=== PATIENT | female | born 1955 | race Caucasian/White ===

== ENCOUNTER 2023-09-30 10:15 | Outpatient (OUT) | payer MEDICARE, OTHER, SELFPAY ==
--- NOTE | 2023-09-30 10:32 | XR_ITS ---
The [address] [address] Patient Name: BRANT ÁLVAREZ MRN: [id number] date: 1955 Sex: F Assigned Patient Location: LAB Current Patient Location: LAB Accession/Order Number: [id number] Exam Date: 09/30/2023 10:37 Report Date: 09/30/2023 11:34 At the request of: ADILSON CARRIZALES Procedure: XR chest 2V EXAM: XR chest 2V HISTORY: Persistant Cough R05.3 COMPARISON: None. TECHNIQUE: PA and lateral views of the chest. FINDINGS: The cardiomediastinal silhouette is normal. No focal consolidation is identified. There is no pneumothorax. No pleural effusion is noted. The osseous structures are intact. XR/XR chest 2V IMPRESSION: No acute cardiopulmonary process. Electronically authenticated by: MARVIN GREWAL Date: 09/30/2023 11:34
[2023-09-30 10:56] LABS: Basophils Absolute Auto 0.1 10^3/uL (0.0-0.1); Basophils Percent Auto 0.7 % (0.2-2.0); Eosinophils Absolute Auto 0.3 10^3/uL (0.0-0.7); Eosinophils Percent Auto 2.9 % (0.9-7.0); Hematocrit 47.8 % (36.0-48.0); Hemoglobin 15.8 g/dL (12.0-16.0); Immature Granulocytes Abs Auto 0.02 10^3/uL (0.00-0.03); Immature Granulocytes Pct Auto 0.2 % (0.0-0.5); Lymphocytes Percent Auto 35.3 % (20.5-60.0); Mean Corpuscular HGB Conc 33.1 g/dL (29.9-35.2); Mean Corpuscular Hemoglobin 31.1 pg (26.7-34.0); Mean Corpuscular Volume 94.1 fL (81.0-99.0); Mean Platelet Volume 9.5 fL (9.5-13.5); Monocytes Absolute Auto 0.4 10^3/uL (0.3-0.8); Monocytes Percent Auto 5.1 % (1.7-12.0); Neutrophils Absolute Auto 4.8 10^3/uL (1.4-6.5); Neutrophils Percent Auto 55.8 % (43.0-75.0); Platelet Count 283 10^3/uL (150-450); Red Blood Count 5.08 10^6/uL (4.20-5.40); Red Cell Distribution Width 12.7 % (11.0-15.0); White Blood Count 8.6 10^3/uL (4.0-11.0)
[2023-09-30 11:04] LABS: Anion Gap 9.2; BUN Creatinine Ratio 11.7; Calcium 9.7 mg/dL (8.5-10.1); Carbon Dioxide 31.2 mmol/L (21.0-32.0); Chloride 102 mmol/L (98-107); Cholesterol 289 mg/dL (<=200); Estimated GFR (African America 59 (>=60); Estimated GFR (Non-African Ame 49 (>=60); Glucose 95 mg/dL (74-106); HDL Cholesterol 58 mg/dL (40-60); Potassium 3.4 mmol/L (3.5-5.1); Sodium 139 mmol/L (136-145); Triglycerides 150 mg/dL (<=150)
== END 2023-09-30 10:16 | disposition home or self-care (01) ==
LOC: LAB 10:20
PROVIDERS: PCP Internal Medicine; Visit Provider Internal Medicine
DX: I10 Essential (primary) hypertension (principal); E78.00 Pure hypercholesterolemia, unspecified; Z79.899 Other long term (current) drug therapy; R05.9 Cough, unspecified
CPT/HCPCS: 36415; 71046; 80048; 80061; 85025

== ENCOUNTER 2024-08-04 12:09 | Emergency (ER) | payer MEDICARE, OTHER, SELFPAY ==
[2024-08-04 12:16] VITALS: BP 169/90; PULSE 72; TEMP 36.7; O2SAT 97; BMI 35.0
--- OUTSIDE RECORDS SUMMARY | 2024-08-04 12:30 | XMS_ITS | CCD ---
Author Organization [facility] Care Team Providers Care Mechanic Insulator Name Role Phone REDDY, DR DE ANDA Attending Unavailable REDDY, DR DE ANDA Consulting Unavailable REDDY, DR DEA NDA Primary Care Unavailable REDDY, DR DE ANDA Admitting Unavailable WEST, DR MICHELLE Corral Consulting Unavailable Reddy, Bobby Unavailable Allergies Allergy Classification Reported Allergen(s) Allergy Type Date of Onset Reaction(s) Facility (6 sources) Simvastatin Drug Allergy 03-10-20 Unknown, Unknown Reaction [facility] (4 sources) Substance with penicillin structure and antibacterial mechanism of action (substance) Drug allergy CDNlion Other (2 sources) Penicillins Allergy to substance 03-10-20 [facility] Medications Current Medications Medication Drug Class(es) Dates Sig (Normalized) Sig (Original) amLODIPine 5 mg oral tablet (8 sources) Dihydropyridine Calcium Channel Raoul Start: 03-10-2024 take 5 mg by mouth once daily Amlodipine Active 5 MG PO Daily 90 90 March 10, 2024 11:46am Start: 03-10-2024 End: 03-10-2024 take 2.5 mg by mouth once daily Amlodipine Discontinue d 2.5 MG PO Daily March 10, 2024 12:00am March 10, 2024 11:48am Start: 09-16-2023 take 1 tablet by tunde th every twenty-four hours amLODIPine Besylate 2.5 MG 1 tablet Orally Once a day for 30 days Aug, Active 24 hr buPROPion hydrochloride 300 mg extended release oral tablet (6 sources) Aminoketone Start: 03-10-2024 take 300 mg by mouth once daily Bupropion Hcl Active 300 MG PO Daily March 10, 2024 12:00am Start: 07-30-2022 take 1 tablet by tunde th every twenty-four hours buPROPion HCl ER (XL) 300 MG 1 tablet in the morning Orally Once a day 12 Sep, 2022 Active ezetimibe 10 mg oral tablet (6 sources) Dietary Cholesterol Absorption Inhibitor Start: 03-10-2024 take 10 mg by mouth once daily Ezetimibe Active 10 MG PO Daily March 10, 2024 12:00am Start: 12-12-2021 take 1 tablet by tunde every twenty-four hours Ezetimibe 10 MG 1 tablet Orally Once a day Nov, Active hydroCHLOROthiazide 25 mg oral tablet (6 sources) Thiazide Diuretic Start: 03-10-2024 take 25 mg by mouth once daily Hydrochlorothiazide Active 25 MG PO Daily March 10, 2024 12:00am take 1 tablet by mouth once armando y hydroCHLOROthiazide 25 mg TAKE 1 TABLET BY MOUTH DAILY Active omeprazole 40 mg delayed release oral capsule (6 sources) Proton Pump Inhibitor Start: 03-10-2024 take 40 mg by mouth once daily Omeprazole Active 40 MG PO Daily March 10, 2024 12:00am Start: 09-16-2023 take 1 capsule by mo [facility] once daily Omeprazole 40 MG 1 capsule 30 minutes before morning meal Orally Once a day for 30 days Aug, Active Completed/Discontinued Medications Medication Drug Class(es) Dates Sig (Normalized) Sig (Original) triamcinolone acetonide 40 mg/ml injectable suspension (4 sources) Corticosteroid Start: 08-22-2023 Kenalog-40 Aug, 60 mg Problems Active Problems Problem Classification Problem Date Documented Da te Episodic/Chronic Anxiety disorders (5 sources) Generalized anxiety disorder; Translations: [Generalized anxiety disorder] Chronic Chronic obstructive pulmonary disease and bronchiectasis (2 sources) Simple chronic bronchitis; Translations: [Simple chronic bronchitis] Chronic Disorders of lipid metabolism (5 sources) Hypercholesterolemi a; Translations: [Pure hypercholesterolemi a, unspecified] Chronic Esophageal disorders (4 sources) Gastro-esophageal reflux disease with esophagitis; Translations: [Gastroesophageal reflux disease with esophagitis without hemorrhage] Chronic Essential hypertension (9 sources) Essential hypertension; Translations: [Essential (primary) hypertension] Chronic Other aftercare (1 source) Other intermediate designer (current) drug therapy Episodic Other nutritional; endocrine; and metabolic disorders (4 sources) Body mass index 30+ - obesity; Translations: [Body mass index (BMI) 34.0-34.9, adult] Chronic Other nutritional; endocrine; and metabolic disorders (4 sources) 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 imbalance; Translations: [Other obesity due to excess calories] Chronic Other nutritional; endocrine; and metabolic disorders (1 source) Other obesity due to excess calories Chronic Other nutritional; endocrine; and metabolic disorders (1 source) Body mass index (BMI) 34.0-34.9, adult Chronic Other screening for suspected conditions (not mental disorders or infectious disease) (2 sources) Encounter for screening mammogram for malignant neoplasm of breast; Translations: [ENC SCR MAMMO MALIG NEOPLASM BREAST] Onset: 10-01-2022 Episodic Other upper respiratory disease (6 sources) Allergic rhinitis due to pollen; Translations: [Allergic rhinitis due to pollen] 05-20-2024 Chronic Other upper respiratory disease (3 sources) Allergic rhinitis due to pollen Chronic Substance-related disorders (2 sources) Tobacco dependence in remission; Translations: [Nicotine dependence, cigarettes, in remission] Chronic Past or Other Problems Problem Classification Problem Date Documented Da te Episodic/Chronic Esophageal disorders (1 source) Esophageal disorders Unclassified (1 source) Persistent cough R05.3 Results Test Name Value Interpretation Reference Range Facil ity CBC AUTO DIFFon 09-26-2022 BASO # 0.1 103/ul Normal 0.0-0.1 [facility] Comment on above: Performed By: #### C BC #### [facility] [address] [place] [address] Dr. Cassie Porter Basophils/100 WBC (Bld) 0.8 % Normal 0.2-2.0 [facility] Comment on above: Performed By: #### C BC #### [facility] [address] [place] [address] Dr. Cassie Porter EO # 0.2 103/ul Normal 0.0-0.7 [facility] Comment on above: Performed By: #### C BC #### [facility] [address] [place] [address] Dr. Cassie Porter Eosinophils/100 WBC (Bld) 1.9 % Normal 0.9-7.0 [facility] Comment on above: Performed By: #### C BC #### [facility] [address] [place] [address] Dr. Cassie Porter Erythrocyte distribution width (RBC) [Ratio] 12.7 % Normal 11.0-15.0 [facility] Comment on above: Performed By: #### C BC #### [facility] [address] [place] [address] Dr. Cassie Porter Hematocrit (Bld) [Volume fraction] 48.4 % Critically high 36.0-48.0 [facility] Comment on above: Performed By: #### C BC #### [facility] [address] [place] [address] Dr. Cassie Porter Hemoglobin (Bld) [Mass/Vol] 16.6 g/dL Critically high 12.0-16.0 [facility] Comment on above: Performed By: #### C BC #### [facility] [address] [place] [address] Dr. Cassie Porter IG # 0.03 10e3/ul Normal 0.00-0.03 [facility] Comment on above: Performed By: #### C BC #### [facility] [address] [place] [address] Dr. Cassie Porter IG % 0.4 % Normal 0.0-0.5 [facility] Comment on above: Performed By: #### C BC #### [facility] [address] [place] [address] Dr. Cassie Porter LYMPH # 2.8 103/ul Normal 1.2-3.8 [facility] Comment on above: Performed By: #### C BC #### [facility] [address] [place] [address] Dr. Cassie Porter Lymphocytes/100 WBC (Bld) 35.8 % Normal 20.5-60.0 [facility] Comment on above: Performed By: #### C BC #### [facility] [address] [place] [address] Dr. Cassie Porter MANUAL DIFF REQ NO Normal [facility] Comment on above: Performed By: #### C BC #### [facility] [address] [place] [address] Dr. Cassie Porter MCH (RBC) [Entitic mass] 31.8 pg Normal 26.7-34.0 [facility] Comment on above: Performed By: #### C BC #### [facility] [address] [address] [address] Cassie Porter MCHC (RBC) [Mass/Vol] 34.3 g/dL Normal 29.9-35.2 [facility] Comment on above: Performed By: #### C BC #### [facility] [address] [place] [address] Dr. Cassie Porter MCV (RBC) [Entitic vol] 92.7 fL Normal 81.0-99.0 [facility] Comment on above: Performed By: #### C BC #### [facility] [address] [place] [address] Dr. Cassie Porter MONO # 0.5 103/ul Normal 0.3-0.8 [facility] Comment on above: Performed By: #### C BC #### [facility] [address] [place] [address] Dr. Cassie Porter Monocytes/100 WBC (Bld) 6.5 % Normal 1.7-12.0 [facility] Comment on above: Performed By: #### C BC #### [facility] [address] [place] [address] Dr. Cassie Porter NEUT # 4.3 103/ul Normal 1.4-6.5 [facility] Comment on above: Performed By: #### C BC #### [facility] [address] [place] [address] Dr. Cassie Porter Neutrophils/100 WBC (Bld) 54.6 % Normal 43.0-75.0 [facility] Comment on above: Performed By: #### C BC #### [facility] [address] [place] [address] Dr. Cassie Porter Platelet mean volume (Bld) [Entitic vol] 9.1 fL Critically low 9.5-13.5 [facility] Comment on above: Performed By: #### C BC #### [facility] [address] [place] [address] Dr. Cassie Porter PLT 257 103/ul Normal 150-450 [facility] Comment on above: Performed By: #### C BC #### [facility] [address] [place], [place] [address] Dr. Cassie Porter RBC 5.22 106/ul Normal 4.20-5.40 [facility] Comment on above: Performed By: #### C BC #### [facility] [address] [place], [place] [address] Dr. Cassie Porter WBC 7.8 103/ul Normal 4.0-11.0 [facility] Comment on above: Performed By: #### C BC #### [facility] [address] [place], [place] [address] Dr. Cassie Porter MG MAMM SCREEN 3D ANSELMO CADon 09-26-2022 MG MAMM SCREEN 3D ANSELMO CAD Patient: KIMBERLI GERMAN Exam Date: 09/26/2022 : 1955 Gender:F Ordering : DR BOBBY CARRIZALES D.O. Admission #: [id number] Family : Order #: [id number] CLICK HERE TO VIEW EXAM RADIOLOGY REPORT PROCEDURE: MAMMOGRAM SCREENING 3D BILATERAL CAD COMPARISON: MG MAMM SCREEN ANSELMO W CAD, 04/09/2019. MG MAMM SCREEN 3D ANSELMO CAD, 09/20/2021. INDICATIONS: Screening mammography Calculator Name NCI Breast Cancer Risk Assessment Tool 5 Year Breast Cancer Risk Not Reported. Lifetime Breast Cancer Risk Not Reported. Personal Breast Cancer No Personal Ovarian Cancer No Treatments None Family Cancers None LOCATION: [facility] BREAST COMPOSITION: Scattered areas fibroglandular density. FINDINGS: DIAGNOSTIC CATEGORY 2--BENIGN FINDING. NO CHANGE FROM COMPARISON. Scattered benign-appearing calcifications are present. Scattered benign-appearing lymph nodes are present. Scattered benign-appearing nodules are present. RIGHT BREAST: No significant suspicious finding. LEFT BREAST: No significant suspicious finding. RECOMMENDATIONS: ROUTINE MAMMOGRAM AND CLINICAL EVALUATION IN 12 MONTHS. PLEASE NOTE: A NORMAL MAMMOGRAM DOES NOT EXCLUDE THE POSSIBILITY OF BREAST CANCER. A CLINICALLY SUSPICIOUS PALPABLE LUMP SHOULD BE BIOPSIED. Dictated by: Michelle Byrd MD on 09/26/2022 at 13:03 Approved by: Michelle Byrd MD on 09/26/2022 at 13:08 Normal [facility] PROF 14(COMP METB)on 022 Albumin [Mass/Vol] 3.8 g/dL Normal 3.4-5.0 [facility] Comment on above: Performed By: #### C MP #### [facility] [address] [place] [address] Dr. Cassie Porter Albumin/Globulin [Mass ratio] 0.9 {ratio} Normal [facility] Comment on above: Performed By: #### C MP #### [facility] [address] [address] [address] Cassie Porter ALP [Catalytic activity/Vol] 66 U/L Normal 46-116 [facility] Comment on above: Performed By: #### C MP #### [facility] [address] [place] [address] Dr. Cassie Porter ALT [Catalytic activity/Vol] 44 U/L Normal 14-59 [facility] Comment on above: Performed By: #### C MP #### [facility] [address] [place] [address] Dr. Cassie Porter Anion gap [Moles/Vol] 7.9 mmol/L Normal [facility] Comment on above: Performed By: #### C MP #### [facility] [address] [place] [address] Dr. Cassie Porter AST [Catalytic activity/Vol] 27 U/L Normal 15-37 [facility] Comment on above: Performed By: #### C MP #### [facility] [address] [place] [address] Dr. Cassie Porter Bilirubin [Mass/Vol] 0.7 mg/dL Normal 0.2-1.0 [facility] Comment on above: Performed By: #### C MP #### [facility] [address] [place] [address] Dr. Cassie Porter Calcium [Mass/Vol] 9.8 mg/dL Normal 8.5-10.1 [facility] Comment on above: Performed By: #### C MP #### [facility] [address] [place] [address] Dr. Cassie Porter Chloride [Moles/Vol] 102 mmol/L Normal 98-107 [facility] Comment on above: Performed By: #### C MP #### [facility] [address] [address] [address] Cassie Porter CO2 [Moles/Vol] 33.6 mmol/L Critically high 21.0-32.0 [facility] Comment on above: Performed By: #### C MP #### [facility] [address] [address] [address] Cassie Porter Creatinine [Mass/Vol] 1.02 mg/dL Normal 0.55-1.02 [facility] Comment on above: Performed By: #### C MP #### [facility] [address] [address] [address] Cassie Porter EGFR-AF LUXEMBOURGER >60 Normal >=60 [facility] Comment on above: Performed By: #### C MP #### [facility] [address] [address] [address] Cassie Porter EGFR-NON AF LUXEMBOURGER 54 mL/min/1.73m2 Critically low >=60 [facility] Comment on above: Performed By: #### C MP #### [facility] [address] [address] [address] Cassie Porter Globulin (S) [Mass/Vol] 4.0 g/dL Normal [facility] Comment on above: Performed By: #### C MP #### [facility] [address] [address] [address] Cassie Porter Glucose [Mass/Vol] 94 mg/dL Normal 74-106 [facility] Comment on above: Performed By: #### C MP #### [facility] [address] [address] [address] Cassie Porter Potassium [Moles/Vol] 3.5 mmol/L Normal 3.5-5.1 [facility] Comment on above: Performed By: #### C MP #### [facility] [address] [address] [address] Cassie Porter Protein [Mass/Vol] 7.8 g/dL Normal 6.4-8.2 [facility] Comment on above: Performed By: #### C MP #### [facility] [address] [address] [address] Cassie Porter Sodium [Moles/Vol] 140 mmol/L Normal 136-145 [facility] Comment on above: Performed By: #### C MP #### [facility] [address] [address] [address] Cassie Porter Urea nitrogen [Mass/Vol] 13.0 mg/dL Normal 7.0-18.0 [facility] Comment on above: Performed By: #### C MP #### [facility] [address] [address] [address] Cassie Porter Urea nitrogen/Creatinine [Mass ratio] 12.7 mg/mg Normal [facility] Comment on above: Performed By: #### C MP #### [facility] [address] [address] [address] Cassie Porter Ambulatory Clinical Summaryo 06-17-2020 Ambulatory Clinical Summary {[id number] Normal [facility] Ambulatory Clinical Summary {[id number]}CD:[id number] Normal [facility] Patient Educationon 06-17-20 Patient Education Family Medicine Flank Pain Flank pain refers to pain that is located on the side of the body between the upper abdomen and the back. The pain may occur over a short period of time (acute ) or may be long-term or reoccurring (chronic ). It may be mild or severe. Flank pain can be caused by many things. CAUSES Some of the more common causes of flank pain include: ? Muscle strains. ? ? Muscle spasms. ? ? A disease of your spine (vertebral disk disease ). ? ? A lung infection (pneumonia ). ? ? Fluid around your lungs (pulmonary edema ). ? ? A kidney infection. ? ? Kidney stones. ? ? A very painful skin rash caused by the chickenpox virus (shingles ). ? ? Gallbladder disease. ? HOME CARE INSTRUCTIONS Home care will depend on the cause of your pain. In general, ? Rest as directed by your caregiver. ? Drink enough fluids to keep your urine clear or pale yellow. ? Only take amqk-ibn-kdvlokx or prescription medicines as directed by your caregiver. Some medicines may help relieve the pain. ? Tell your caregiver about any changes in your pain. ? Follow up with your caregiver as directed. SEEK IMMEDIATE MEDICAL CARE IF: ? Your pain is not controlled with medicine. ? ? You have new or worsening symptoms. ? Your pain increases. ? ? You have abdominal pain. ? ? You have shortness of breath. ? ? You have persistent nausea or vomiting. ? ? You have swelling in your abdomen. ? ? You feel faint or pass out. ? ? You have blood in your urine. ? You have a fever or persistent symptoms for more than 2?3 days. ? You have a fever and your symptoms suddenly get worse. MAKE SURE YOU: ? Understand these instructions. ? Will watch your condition. ? Will get help right away if you are not doing well or get worse. Document Released: 12/26/2006 Document Revised: 07/29/2013 Document Reviewed: 06/18/2013 ExitCare? Patient Information ?2013 [employer]. Normal [facility] 06-17-2020 [facility] [id number]:[id number] Normal [facility] Urology Office/Clinic Noteon 06-17-2020 Urology Office/Clinic Note Chief Complaint f/u with KUB HPI Staff Pt here for f/u with KUB due to microscopic hematuria, Hx of kidney stones, flank pain and urge incontinence. Pt had KUB done 06/16 at [facility] that is neg for obvious stones. Pt was on Tolterodine but stopped this after retiring. Dysuria: No Incomplete bladder emptying: Feels empty Hematuria: Pt denies blood but states that she has noticed her urine is a real dark orange . Denies odor. Frequency: Increased due to lasix Urgency: No, Pt states she can hold her urine. Nocturia: 1x, intermittently Stream: Good stream Leaking: Yes Post void dripping: No Wearing pads/ Depends: No Urge incontinence: No Stress incontinence: Mild dribbling with cough/ sneeze/ jumping. Abdominal pain: no Flank pain: Intermittent pain on the right side, ongoing for years. Tender to pain, last year had two sharp jolts that almost put her on her knees. Sexual complaints: No History of Present Illness Reviewed UA. Reviewed KUB. There have been no associated fever or chills. Pt. denies any pain/burning with urination at this time. Review of Systems PHQ Score Initial Depression Screen Score: 0 ROS - Provider Constitutional: denies weight loss, denies hot flashes. Eyes: denies eye problems. Gastrointestinal: denies nausea, denies vomiting. Cardiovascular: denies chest pain or angina. Integumentary: no dryness Musculoskeletal: denies musculoskeletal symptoms. ENMT: denies otolaryngeal symptoms. Respiratory: no shortness of breath. Heme/Lymph: denies easy bleeding tendency, denies easy bruising tendency. Psychiatric: no confusion, no anxiety. Genitourinary: denies vaginal discharge, denies incontinence, denies dysuria, denies hematuria, denies urinary frequency, denies amenorrhea, denies menorrhagia, denies abnormal bleeding, denies pelvic pain, denies genital sores, and denies decreased libido. Physical Exam Vitals & Measurements HR: 64(Peripheral) BP: 149/91 HT: 154.94 cm WT: 87.6 kg BMI: 36.49 General Appearance: alert , no acute distress, well nourished, well developed female. Genitourinary: bladder nonpalpable, moderate flank pain. Assessment/Plan 1. History of kidney stones (Z87.442: Personal history of urinary calculi) KUB done 06/16/2020 that shows negative for obvious stones. Pt. is doing well and will call the office if she encounter any concerns/issues. 2. Microscopic hematuria (R31.29: Other microscopic hematuria) this is chronic . UA today shows a moderate amount of blood. Pt denies visible blood but states that she has noticed her urine is a real dark orange . Advised pt. to increase water intake even when she's not thirsty. 3. Flank pain (R10.9: Unspecified abdominal pain) Intermittent and ongoing, pain on the right side. seems to be musculoskeletal. I have reviewed the previous health record information and history for this pt. from Dr. Gu. Follow-up With When Contact Information BRITTANIE BOSTON, Satinder Vance Only if needed [address] [place] [address]- [phone] Additional Instructions: Patient Education Flank Pain I, Char Vora , personally scribed for Dr. Gu on 06/17/2020 10:22:05. . Documentation recorded by the scribe, Char Vora, accurately reflects the services(s) I performed and decisions made by me. Authenticated by Dr. Gu on 06/17/2020 10:23:55. 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 Medications aspirin buPROPion, Oral Diclofenac 75mg Tab-DR, Oral, BID hydrochlorothiazide 25 mg Tab, 25 mg= 1 tab(s), Oral, Daily Zetia, Oral, Daily Allergies penicillin (Tongue swelling) solifenacin (Unknown) Social History Tobacco Former smoker, quit more than 30 days ago Tobacco Use:., 06/17/2020 Family History Heart disease: Mother. Primary malignant neoplasm of lung: Father. Lab Results Ambulatory Point of Care Results Bilirubin Urine Dipstick: Negative (06/17/20 09:27:00) Blood Urine Dipstick: 2+ Moderate (06/17/20 09:27:00) Glucose Urine Dipstick: Negative (06/17/20 09:27:00) Ketones Urine Dipstick: Negative (06/17/20 09:27:00) Leukocytes Urine Dipstick: 1+ Small (06/17/20 09:27:00) Nitrite Urine Dipstick: Negative (06/17/20 09:27:00) Protein Urine Dipstick: Negative (06/17/20 09:27:00) Specific [place] Urine Dipstick: 1.025 (06/17/20 09:27:00) Urine Appearance Urine Dipstick: Slightly cloudy (06/17/20 09:27:00) Urine Color Urine Dipstick: Dark yellow (06/17/20 09:27:00) Urobilinogen Urine Dipstick: Normal 0.2-1 EU/dl (06/17/20 09:27:00) pH Urine Dipstick: 5.5 (06/17/20 09:27:00) Normal [facility] Comment on above: Result Comment: Elec tronically Signed By: Satinder GU MD\.br\Date and Time Signed: 06/17/20 10:24 EDT\.br\Electronically Co-Signed By: Char Vora MA\.br\Date and Time Co-Signed: 06/17/20 10:22 EDT Vital Signs Date Time Vital Sign Value Performing Clinician Facility 03-10-2024 11:35-0400 Body height 154.94 cm [facility] 03-10-2024 11:35-0400 Body mass index (BMI) [Ratio] 34.5 kg/m2 [facility] 03-10-2024 11:35-0400 Body weight 83 kg [facility] 03-10-2024 11:35-0400 Diastolic blood pressure 80 mm[Hg] [facility] 03-10-2024 11:35-0400 Heart rate 67 /min [facility] 03-10-2024 11:35-0400 SaO2% (BldA) [Mass fraction] 98 % [facility] 03-10-2024 11:35-0400 Systolic blood pressure 150 mm[Hg] [facility] 11-07-2023 10:30-0500 Body height 154.94 cm [employer] Other [facility] [employer] Other 11-07-2023 10:30-0500 Body mass index (BMI) [Ratio] 34.84 kg/m2 [employer] [place] Other [facility] Other 11-07-2023 10:30-0500 Body weight 83.64 kg Bobby Ball Other [facility] Other 11-07-2023 10:30-0500 Diastolic blood pressure 83 mm[Hg] [employer] Other [facility] Other 11-07-2023 10:30-0500 Respiratory rate 12 /min Bobby Ball Other [facility] Other 11-07-2023 10:30-0500 Systolic blood pressure 133 mm[Hg] Bobby Ball Other [facility] Other 09-16-2023 10:30-0400 Body height 154.94 cm Bobby [employer] Other [facility] Other 09-16-2023 10:30-0400 Body mass index (BMI) [Ratio] 34.84 kg/m2 Bobby [employer] Other [facility] Other 09-16-2023 10:30-0400 Body weight 83.64 kg Bobby [employer] Other [facility] Other 09-16-2023 10:30-0400 Respiratory rate 12 /min Bobby [employer] Other [facility] Other Encounters Encounter Date Encounter Type Care Provider Facility Start: 05-20-2024 End: 05-20-2024 ambulatory [facility] Work Phone: Start: 05-20-2024 End: 05-20-2024 Patient encounter procedure [facility] Work Phone: Start: 03-10-2024 End: 03-10-2024 ambulatory [facility] Work Phone: Start: 03-10-2024 End: 03-10-2024 Patient encounter procedure [facility] Work Phone: Start: 03-10-2024 Non-patient / Non-visit [facility] [employer] Work Phone: Start: 11-07-2023 End: 11-07-2023 ambulatory Bobby Carrizales Other [facility] Other Start: 11-07-2023 Office outpatient vi sit 15 minutes Bobby Carrizales [facility] Start: 10-01-2023 End: 10-01-2023 ambulatory Bobby Carrizales Other [facility] Other Start: 10-01-2023 Telephone encounter Bobby Carrizales [facility] Start: 09-16-2023 End: 09-16-2023 ambulatory Bobby Carrizales Other [facility] Other Start: 09-16-2023 Patient encounter procedure Bobby Carrizales [facility] Start: 08-22-2023 End: 08-22-2023 ambulatory Bobby Carrizales Other [facility] Other Start: 08-22-2023 Nursing evaluation o f patient and report Bobby Carrizales [facility] Start: 10-01-2022 Encounter for genera l adult medical examination without abnormal findings DR BOBBY CARRIZALES [facility] Start: 09-26-2022 End: 09-27-[address] BOBBY CARRIZALES Facility:[facility] Start: 09-26-2022 End: 09-27-2022 Encounter for general adult medical examination without abnormal findings DR BOBBY CARRIZALES Facility:[facility] Immunizations Immunization Date Immunization Notes Care Provider Fa cili 03-09-2021 COVID-19 Vaccine Pfi zer - Documentation Purposes Only Bobby Carrizales Other [facility] 02-16-2021 COVID-19 Vaccine Pfi zer - Documentation Purposes Only Bobby Carrizales Other [facility] Payers Date Payer Category Payer Unknown [id number] 1955 Unknown [id number] Medicare [id number] 2.1 [id number] Private Health Insurance [employer] SSI CLI [id number] Unknown [id number] Unknown [id number] Social History Date Type Detail Facility Unknown if ever smoked [facility] Other Sex Assigned At Sex Assigned At Bir th [facility] Other Start: 03-10-2024 Tobacco smoking status NHIS Never smoked tobacco (finding) [facility] Start: 1955 Sex Assigned At Female F [facility] Evaluation note 11-07-2023 Note Date & Type Note Facility 11-07-2023 Evaluation note Encounter Date Diagnosis Assessment Notes Oct, Simple chronic bronchitis (ICD-10 - J41.0) Mucolyitics as needed. Push fluids Avoid dust, smoke and fumes Oct, Seasonal allergic rhinitis due to pollen (ICD-10 - J30.1) Rotate antihistamines. Flonase and saline NS daily Oct, Cigarette nicotine dependence in remission (ICD-10 - F17.211) Continue abstinence May have underlying obstructive disease but symptoms don't warrant further investigation [facility] [employer] Other Evaluation note 09-16-2023 Note Date & Type Note Facility 09-16-2023 Evaluation note Encounter Date Diagnosis Assessment Notes Aug, Medicare annual wellness visit, subsequent (ICD-10 - Z00.00) Personalized health advice was given to the beneficiary including a written plan for screenings discussed and provided. Advanced care planning reviewed and/or information given as requested. Additional counseling was provided here today in regards to, [ ]. The above visit was performed by [ ], under direct supervision of [ ]. Document reviewed and amended by provider signed below. Aug, Hypercholesteremia (ICD-10 - E78.00) Instructed on diet and exercise with continued statin therapy.Discussed the beneficial effects of lowering cholesterol in reducing the risk for cerebrovascular and cardiovascular disease. Aug, Primary hypertension (ICD-10 - I10) This patient is instructed to consume a healthy, low-fat, low-salt diet. They are also encouraged to continue exercise to achieve/maintain a normal BMI. Aug, SHAW (generalized anxiety disorder) (ICD-10 - F41.1) Healthy diet and exercise Keep active Continue medical treatment Aug, Other obesity due to excess calories (ICD-10 - E66.09) This patient has been instructed on a low-fat, high-fiber diet. They are instructed to reduce calories, portion sizes and snacks. It is recommended that they exercise for 30 minutes, 3-5 times weekly. Aug, Body mass index [BMI] 34.0-34.9, adult (ICD-10 - Z68.34) Aug, Gastroesophageal reflux disease with esophagitis without hemorrhage (ICD-10 - K21.00) Diet instructions: Smaller portions, avoid eating and laying flat, avoid eating or drinking prior to bedtime. Weight loss. Aug, Persistent cough (ICD-10 - R05.3) Discussed different etiology for persistent cough. Allergies w/ PND GERD w/ reflux RAD w/ weather changes, allergies COPD/Asthma Aug, Screening mammogram, encounter for (ICD-10 - Z12.31) Instructed patient on monthly SBE and yearly mammograms. Aug, High risk medication use (ICD-10 - Z79.899) Aug, Non-seasonal allergic rhinitis due to pollen (ICD-10 - J30.1) [facility] Other Evaluation note 08-22-2023 Note Date & Type Note Facility 08-22-2023 Evaluation note Encounter Date Diagnosis Assessment Notes Aug, Non-seasonal allergic rhinitis due to pollen (ICD-10 - J30.1) [facility] Other Evaluation note Note Date & Type Note Facility Evaluation note No Information [employer] Other Evaluation note Note Date & Type Note Facility Evaluation note Diagnosis Onset Date Hypertension [facility] Work Phone: History general Narrative - Reported Note Date & Type Note Facility History general Narrative - Reported Type Medical History menopause Medical History hypertension Surgical History C section Hospitalization History see surgical history [facility] Other Summary Purpose Family History Relationship Condition Age at Onset Recorded Date/T dariel father Unknown Not Specified Unknown Relationship Condition Age at Onset Recorded Date/T dariel father Unknown mother Unknown Advance Directives Advance Directive Response Recorded Date/ Time Advance Directives No March 10 024 11:28am Chief Complaint and Reason for Visit Chief Complaint Amb Documentation BP elevated Reason for Visit Hypertension Chief Complaint Amb Documentation BP elevated allergy shot Reason for Visit Hypertension Additional Source Comments INFORMATION SOURCE (unrecogn ized section and content) DATE CREATED AUTHOR 06/18/2020 Green Karthik [facility] DATE CREATED AUTHOR AUTHOR'S ORGANIZ ATION 10/01/2022 [facility] REASON FOR VISIT (unrecogniz ed section and content) [facility] resu lts2 month Follow up Care Teams (unrecognized sec tion and content) Team Status: Active Member Role Status Dates Bobby Carrizales DO Primary Care Provider Active Team Status: Active Member Role Status Elroy Carrizales DO Primary Care Provider Active Start: March 10, 2024 Melva Humphries LPN Attending Provider Active S tart: March 10, 2024 Team Status: Inactive Member Role Status Elroy Carrizlaes DO Primary Care Provider Active Start: March 10, 2024 End: March 10, 2024 Lima Lopez APRN FAMILY PRACTICE PHYSICIAN-C Attending Provider Act katharine Start: March 10, 2024 End: March 10, 2024 Team Status: Active Member Role Status Elroy Carrizales DO Primary Care Provider Active Start: March 10, 2024 Melva Flores LPN Attending Provider Active St art: March 10, 2024 Team Status: Inactive Member Role Status Elroy Carrizales DO Primary Care Provide r, Attending Provider Active Start: May 20, 2024 End: May 20, 2024 Goals (unrecognized section and content) Goals may be documented in a n alternate section FOR RECORDS PERTAINING TO PATIENTS WHO ARE OR HAVE BEEN ENROLLED IN A CHEMICAL DEPENDENCY/SUBSTANCEABUSE PROGRAM, SOME INFORMATION MAY BE OMITTED. This clinical summary was aggregated from multiple sources. Caution should be exercised in using it in the provision of clinical care. This summary normalizes information from multiple sources, and as a consequence, information in this document may materially change the coding, format and clinical context of patient data. In addition, data may be omitted in some cases. CLINICAL DECISIONS SHOULD BE BASED ON THE PRIMARY CLINICAL RECORDS. [facility] [employer] provides no warranty or guarantee of the accuracy or completeness of information in this document.
--- NOTE | 2024-08-04 12:46 | ED_ITS ---
HPI HPI - General Adult General Chief complaint: Fall Stated complaint: LOWER EXTREMITY INJURY/HEAD INJURY/ FALL Time Seen by Provider: 08/04/24 12:32 Source: patient Mode of arrival: Wheelchair Limitations: physical limitation History of Present Illness HPI narrative: Patient is a 69-year-old female who is presenting to the ER today after she fell off a ladder approximately 6 foot in the air. Patient is on no blood thinners. Patient stated that she was wearing sandals, going up the rungs of the ladder, patient accidentally stepped on one of her flip-flops, patient try to jump or h op to move off the other flip-flop that she could not go up to the next rung of the ladder patient lost balance on the ladder, possibly falling onto the right side hitting the cabinets, counter, and then ended up landing on the ground, on her left side. This happened in the kitchen. Patient was trying to dust legs in the ceiling. Patient has no headache. She does have a small hematoma to the right parietal area, no bleeding or abrasion noted. No neck pain. No blood thinners. No chest pain or shortness of breath. Patient has no other acute complaints except to her left heel, left midfoot. Patient is not able to walk on the foot secondary to pain. Patient has no other acute complaints. All systems are negative except as noted/marked. All systems reviewed and otherwise negative. Nurses note and vital signs reviewed and patient is not hypoxic. General: The patient appears well and in no apparent distress. Patient is resting comfortably on cart. Patient is not toxic, lethargic, or listless Skin: Warm, dry, no pallor noted. There is no rash noted. No petechiae, purpura. Head: Normocephalic, atraumatic Eye: Normal conjunctiva, no drainage, EOMI. PERRL Ears, Nose, Mouth, and Throat: oral mucosa is moist. Nares patent. Mouth without vesicles. Cardiovascular: Regular Rate and Rhythm, no murmur, gallop, rub Respiratory: Patient is in no distress, no accessory muscle use, lungs are clear to auscultation, no wheezing, rales or rhonchi Back: non-tender, no CVA tenderness bilaterally to percussion. No CT LS midline pain. Patient has no midline or paralumbar sacral tenderness to palpation. No rash, abrasion, hematoma, no signs of trauma to her back or flanks. GI: no tenderness to palpation, no masses appreciated. No rebound, guarding, or rigidity noted. No distention Musculoskeletal: Patient has full range of motion of all of the extremities except the left foot. No no crepitus, no ecchymosis, patient does have moderate tenderness to palpation to the left calcaneus. Patient has mild tenderness palpation to the midfoot, dorsal aspect of the left foot. Patient has no swelling or ecchymosis. No motor, sensory, or focal neurological deficits Neurological: A&O x4, normal speech Psychiatric: Cooperative Related Data Home Medications ?Medication ?Instructions ?Recorded ?Confirmed amlodipine 5 mg tablet 5 mg PO .once daily 08/04/24 08/04/24 aspirin 81 mg tablet,delayed 81 mg PO DAILY 08/04/24 08/04/24 release (Adult Aspirin Regimen) bupropion HCl 300 mg 24 hr tablet, 300 mg PO .once daily 08/04/24 08/04/24 extended release hydrochlorothiazide 25 mg tablet 25 mg PO .once daily 08/04/24 08/04/24 loratadine 10 mg tablet (Allergy 10 mg PO DAILY 08/04/24 08/04/24 Relief (loratadine)) tolterodine 2 mg tablet (Detrol) 2 mg PO DAILY 08/04/24 08/04/24 Previous Rx's ?Medication ?Instructions ?Recorded hydrocodone 7.5 mg-acetaminophen 0.5 tab PO Q4H PRN pain #10 tabs 08/04/24 325 mg tablet Allergies Allergy/AdvReac Type Severity Reaction Status Date / Time Penicillins Allergy Severe Anaphylaxis Verified 08/04/24 12:27 Opioid HPI Opioid Management Most Recent Opioid Data: No Data to Display [facility] Social History Little interest or pleasure in doing things: not at all Feeling down, depressed, or hopeless: not at all Exam Constitutional Vital Signs, click to edit/add: Last Vital Signs Temp 98.1 F 08/04/24 12:16 Pulse 72 08/04/24 12:16 Resp 18 08/04/24 12:16 BP 169/90 H 08/04/24 12:16 Pulse Ox 97 08/04/24 12:16 O2 Del Method Room Air 08/04/24 12:16 Course Vital Signs Vital signs: Vital Signs Temperature 98.1 F 08/04/24 12:16 Pulse Rate 72 08/04/24 12:16 Respiratory Rate 18 08/04/24 12:16 Blood Pressure 169/90 H 08/04/24 12:16 Pulse Oximetry 97 08/04/24 12:16 Oxygen Delivery Method Room Air 08/04/24 12:16 Temperature 98.1 F 08/04/24 12:16 Pulse Rate 72 08/04/24 12:16 Respiratory Rate 18 08/04/24 12:16 Blood Pressure 169/90 H 08/04/24 12:16 Pulse Oximetry 97 08/04/24 12:16 Oxygen Delivery Method Room Air 08/04/24 12:16 Medical Decision Making MDM Narrative Medical decision making narrative: CT of the head, x-ray of the left foot, calcaneus shows no acute fracture dislo cation or acute abnormality.. Patient did have ice applied. Patient does have access to a walker. CT of the brain shows no acute findings. Patient x-ray of left foot and left calcaneus show no acute fracture. Patient does have a walker that she can use. Patient was placed in Arnulfo wrap to the left calcaneus Splint was assisted with . the patient was neurovascularly intact before and after the splint was placed. the affected bones/injured area had proper alignment in a splint. Education on splint care at home was given at bedside. Patient and family have no questions at discharge. Patient will alternate Tylenol and Motrin every 4 hours, patient use [place] as needed as well. Patient will use ice. Patient has availability for walker. Patient will follow-up with PCP. Education on RICE therapy was discussed. Education close head injury was discussed as well, no questions at discharge Discharge Plan Discharge Chief Complaint: Fall Clinical Impression: Contusion of left heel, Closed head injury, Fall, Scalp hematoma Patient Disposition: Home, Self-Care Time of Disposition Decision: 14:58 Condition: Fair Prescriptions / Home Meds: New hydrocodone-acetaminophen 7.5-325 mg tablet 0.5 tab PO Q4H PRN (Reason: pain) Qty: 10 0RF No Action bupropion HCl 300 mg tablet extended release 24 hr 300 mg PO .once daily amlodipine 5 mg tablet 5 mg PO .once daily hydrochlorothiazide 25 mg tablet 25 mg PO .once daily aspirin [Adult Aspirin Regimen] 81 mg tablet,delayed release (/EC) 81 mg PO DAILY tolterodine [Detrol] 2 mg tablet 2 mg PO DAILY loratadine [Allergy Relief (loratadine)] 10 mg tablet 10 mg PO DAILY Print Language: Arabic Instructions: Head Injury (ED), Contusion in Adults (ED), Foot Contusion (ED), Fall Prevention (ED) Additional Instructions: Use ice 20 minutes on, 20 minutes off. Close head injury instructions were discussed at bedside and on discharge paperwork. Use Arnulfo wrap at all times besides ice and shower for the next 5 to 7 days. Use walker as well, weightbearing as tolerated on left foot. Alternate Tylenol and either Motrin, Advil, or ibuprofen every 4 hours to help with pain. If you are having severe pain, substitute a [place] tablet instead of Tylenol. Do not take Tylenol and [place] at the same time, you may actually take too much Tylenol at 1 setting or in 1 day. Maximum Tylenol dose of Tylenol is 3000 mg a day. Maximum dose of either Motrin, Advil, or ibuprofen is 2400 mg a day. Referrals: Bobby Blakely DO [Primary Care Provider] - 1 week
--- NOTE | 2024-08-04 13:02 | CT_ITS ---
The [address] [address] Patient Name: BRANT ÁLVAREZ MRN: [id number] date: 1955 Sex: F Assigned Patient Location: ER Current Patient Location: ER Accession/Order Number: [id number] Exam Date: 08/04/2024 12:58 Report Date: 08/04/2024 13:35 At the request of: PETROS PARKER Procedure: CT head/brain wo con EXAM: CT head/brain wo con HISTORY: fall COMPARISON: None. TECHNIQUE: Multiple thin computed tomograms of the head were obtained, with sagittal and coronal reconstructions. Radiation reduction technique and algorithms were utilized during the study. FINDINGS: The ventricles are not enlarged, the lateral ventricles are symmetric and the third ventricles in the midline. The sylvian fissures and cortical sulci are unremarkable. There is no evidence of an intracranial hemorrhage, mass lesion or apparent acute infarct. The cerebellum and visualized brainstem are intact. The visualized paranasal sinuses are clear. The middle ears are aerated. The mastoid sinuses are clear. There is no apparent acute skull fracture. CT/CT head/brain wo con IMPRESSION: There is no evidence of an intracranial hemorrhage, mass lesion or apparent acute infarct. The visualized sinuses are clear. There is no evidence of a skull fracture. Electronically authenticated by: FADY BURROWS Date: 08/04/2024 13:35
--- NOTE | 2024-08-04 13:10 | XR_ITS ---
The [address] [address] Patient Name: BRANT ÁLVAREZ MRN: [id number] date: 1955 Sex: F Assigned Patient Location: ER Current Patient Location: ER Accession/Order Number: [id number] Exam Date: 08/04/2024 13:00 Report Date: 08/04/2024 13:17 At the request of: PETROS PARKER Procedure: XR foot LT min 3V PROCEDURE: XR foot LT min 3V, XR calcaneus LT min 2V COMPARISON: None. HISTORY: fall FINDINGS: BONES:No acute fracture or dislocation. Mild to moderate enthesopathic spurring of the calcaneus at the Achilles and plantar insertions. Mild degenerative changes of the midfoot with marginal osteophyte formation SOFT TISSUES:Negative. No visible soft tissue swelling. EFFUSION:None visible. OTHER: Negative. XR/XR foot LT min 3V IMPRESSION: No acute fracture Electronically authenticated by: MICHELLE MERCADO Date: 08/04/2024 13:17
--- NOTE | 2024-08-04 13:10 | XR_ITS ---
The [address] [address] Patient Name: BRANT ÁLVAREZ MRN: [id number] date: 1955 Sex: F Assigned Patient Location: ER Current Patient Location: ER Accession/Order Number: [id number] Exam Date: 08/04/2024 13:00 Report Date: 08/04/2024 13:17 At the request of: PETROS PARKER Procedure: XR calcaneus LT min 2V PROCEDURE: XR foot LT min 3V, XR calcaneus LT min 2V COMPARISON: None. HISTORY: fall FINDINGS: BONES:No acute fracture or dislocation. Mild to moderate enthesopathic spurring of the calcaneus at the Achilles and plantar insertions. Mild degenerative changes of the midfoot with marginal osteophyte formation SOFT TISSUES:Negative. No visible soft tissue swelling. EFFUSION:None visible. OTHER: Negative. XR/XR calcaneus LT min 2V IMPRESSION: No acute fracture Electronically authenticated by: MICHELLE MERCADO Date: 08/04/2024 13:17
[2024-08-04] MEDS: HYDROCODONE/ACET 5-325 MG TABLET 1 TAB PO (15:05)
== END 2024-08-04 15:14 | disposition home or self-care (01) ==
PROVIDERS: Emergency Provider Emergency Medicine; PCP Internal Medicine
DX: S90.32XA Contusion of left foot, initial encounter (principal); S09.8XXA Other specified injuries of head, initial encounter; S00.03XA Contusion of scalp, initial encounter; W11.XXXA Fall on and from ladder, initial encounter
CPT/HCPCS: 70450; 73630; 73650; 99284

== ENCOUNTER 2024-10-19 09:48 | Outpatient (OUT) | payer MEDICARE, SELFPAY ==
--- NOTE | 2024-10-19 | MM_ITS ---
Patient Name: BRANT ÁLVAREZ MR#: [id number] : 1955 Exam Date: 10/19/2024 Ordering Doctor: DR Bobby Blakely D.O. RADIOLOGY REPORT PROCEDURE: MM TOMOSYNTHESIS SCREENING BI COMPARISON: MG MAMM SCREEN 3D ANSELMO CAD, 09/26/2022. MG MAMM SCREEN 3D ANSELMO CAD, 09/20/2021. MG MAMM SCREEN ANSELMO W CAD, 04/09/2019. INDICATIONS: SCREENING Calculator Name NCI Breast Cancer Risk Assessment Tool 5 Year Breast Cancer Risk Not Reported. Lifetime Breast Cancer Risk Not Reported. Personal Breast Cancer No Personal Ovarian Cancer No Treatments None Family Cancers None LOCATION: [facility] BREAST COMPOSITION: There are scattered areas of fibroglandular density. FINDINGS: DIAGNOSTIC CATEGORY 2--BENIGN FINDING: RIGHT BREAST: No significant suspicious finding. Scattered benign-appearing calcifications are present. No significant change has occurred. LEFT BREAST: No significant suspicious finding. Scattered benign-appearing calcifications are present. No significant change has occurred. RECOMMENDATIONS: ROUTINE MAMMOGRAM AND CLINICAL EVALUATION IN 12 MONTHS. PLEASE NOTE: A NORMAL MAMMOGRAM DOES NOT EXCLUDE THE POSSIBILITY OF BREAST CANCER. A CLINICALLY SUSPICIOUS PALPABLE LUMP SHOULD BE BIOPSIED. Dictated by: Raul Steel M.D. on 10/19/2024 at 16:17 Approved by: Raul Steel M.D. on 10/19/2024 at 16:20
--- OUTSIDE RECORDS SUMMARY | 2024-10-19 10:14 | XMS_ITS | CCD ---
Author Organization [facility] Care Team Providers Care State Wildlife Officer Name Role Phone REDDY, DR DE ANDA Attending Unavailable REDDY, DR DE ANDA Consulting Unavailable REDDY, DR DE ANDA Primary Care Unavailable REDDY, DR DE ANDA Admitting Unavailable WEST, DR MICHELLE Corral Consulting Unavailable Reddy, Bobby Unavailable Allergies Allergy Classification Reported Allergen(s) Allergy Type Date of Onset Reaction(s) Facility (7 sources) Simvastatin Drug Allergy 03-10-20 Unknown, Unknown Reaction [facility] (4 sources) Substance with penicillin structure and antibacterial mechanism of action (substance) Drug allergy Coubic Other (3 sources) Penicillins Allergy to substance 03-10-20 [facility] Medications Current Medications Medication Drug Class(es) Dates Sig (Normalized) Sig (Original) amLODIPine 5 mg oral tablet (11 sources) Dihydropyridine Calcium Channel Raoul Start: 03-10-2024 End: 06-18-2024 take 5 mg by mouth once daily Amlodipine Active 5 MG PO Daily 90 90 June 18, 2024 3:56pm Start: 03-10-2024 End: 03-10-2024 take 2.5 mg by mouth once daily Amlodipine Discontinue d 2.5 MG PO Daily March 10, 2024 12:00am March 10, 2024 11:48am Start: 09-16-2023 take 1 tablet by tunde th every twenty-four hours amLODIPine Besylate 2.5 MG 1 tablet Orally Once a day for 30 days Aug, Active 24 hr buPROPion hydrochloride 300 mg extended release oral tablet (7 sources) Aminoketone Start: 03-10-2024 take 300 mg by mouth once daily Bupropion Hcl Active 300 MG PO Daily March 10, 2024 12:00am Start: 07-30-2022 take 1 tablet by tunde th every twenty-four hours buPROPion HCl ER (XL) 300 MG 1 tablet in the morning Orally Once a day Jul, Active ezetimibe 10 mg oral tablet (8 sources) Dietary Cholesterol Absorption Inhibitor Start: 06-18-2024 take 1 tablet by mouth once daily Ezetimibe Active 0 .ROUTE .COMPLEX 90 June 18, 2024 8:53am TAKE 1 TABLET BY MOUTH DAILY Start: 03-10-2024 End: 06-18-2024 take 10 mg by mouth once daily Ezetimibe Discontinued 10 MG PO Daily March 10, 2024 12:00am June 18, 2024 8:54am Start: 12-12-2021 take 1 tablet by tunde th every twenty-four hours Ezetimibe 10 MG 1 tablet Orally Once a day Nov, Active hydroCHLOROthiazide 25 mg oral tablet (7 sources) Thiazide Diuretic Start: 03-10-2024 take 25 mg by mouth once daily Hydrochlorothiazide Active 25 MG PO Daily March 10, 2024 12:00am take 1 tablet by mouth once armando y hydroCHLOROthiazide 25 mg TAKE 1 TABLET BY MOUTH DAILY Active omeprazole 40 mg delayed release oral capsule (7 sources) Proton Pump Inhibitor Start: 03-10-2024 take 40 mg by mouth once daily Omeprazole Active 40 MG PO Daily March 10, 2024 12:00am Start: 09-16-2023 take 1 capsule by mo [facility] once daily Omeprazole 40 MG 1 capsule 30 minutes before morning meal Orally Once a day for 30 days Aug, Active Completed/Discontinued Medications Medication Drug Class(es) Dates Sig (Normalized) Sig (Original) triamcinolone acetonide 40 mg/ml injectable suspension (4 sources) Corticosteroid Start: 08-22-2023 Kenalog-40 Aug, 60 mg Problems Active Problems Problem Classification Problem Date Documented Da te Episodic/Chronic Anxiety disorders (7 sources) Generalized anxiety disorder; Translations: [Generalized anxiety disorder] Chronic Chronic obstructive pulmonary disease and bronchiectasis (4 sources) Simple chronic bronchitis; Translations: [Simple chronic bronchitis] Chronic Disorders of lipid metabolism (7 sources) Hypercholesterolemi a; Translations: [Pure hypercholesterolemi a, unspecified] Chronic Esophageal disorders (6 sources) Gastro-esophageal reflux disease with esophagitis; Translations: [Gastroesophageal reflux disease with esophagitis without hemorrhage] 09-15-2024 Chronic Essential hypertension (11 sources) Essential hypertension; Translations: [Essential (primary) hypertension] Chronic Other aftercare (1 source) Other longterm (current) drug therapy Episodic Other nutritional; endocrine; [...] conditions (not mental disorders or infectious disease) (4 sources) Encounter for screening mammogram for malignant neoplasm of breast; Translations: [Patient encounter status] Onset: 10-01-2022 Episodic Other upper respiratory disease (7 sources) Allergic rhinitis due to pollen; Translations: [Allergic rhinitis due to pollen] 05-20-2024 Chronic Other upper respiratory disease (4 sources) Allergic rhinitis due to pollen; Translations: [Allergic rhinitis due to pollen] Chronic Substance-related disorders (4 sources) Tobacco dependence in remission; Translations: [Nicotine dependence, cigarettes, in remission] Chronic Superficial injury; contusion (2 sources) Contusion of left foot; Translations: [Contusion of left foot, initial encounter] 09-17-2024 Episodic Past or Other Problems Problem Classification Problem Date Documented Da te Episodic/Chronic Esophageal disorders (1 source) Esophageal disorders Unclassified (1 source) Persistent cough R05.3 Results Test Name Value Interpretation Reference Range Facil ity CBC AUTO DIFFon 09-26-2022 BASO # 0.1 103/ul Normal 0.0-0.1 [facility] Comment on above: Performed By: #### C BC #### [facility] [address] [place], [place] [address] Dr. Cassie Porter Basophils/100 WBC (Bld) 0.8 % Normal 0.2-2.0 [facility] Comment on above: Performed By: #### C BC #### [facility] [address] [place], [place] [address] Dr. Cassie Porter EO # 0.2 103/ul Normal 0.0-0.7 [facility] Comment on above: Performed By: #### C BC #### [facility] [address] [place] [address] Dr. Cassie Porter Eosinophils/100 WBC (Bld) 1.9 % Normal 0.9-7.0 [facility] Comment on above: Performed By: #### C BC #### [facility] [address] [place] [address] Dr. Cassie Porter Erythrocyte distribution width (RBC) [Ratio] 12.7 % Normal 11.0-15.0 [facility] Comment on above: Performed By: #### C BC #### [facility] [address] [place] [address] Dr. Cassie Porter Hematocrit (Bld) [Volume fraction] 48.4 % Critically high 36.0-48.0 [facility] Comment on above: Performed By: #### C BC #### [facility] [address] [place] [address] Dr. Cassie Porter Hemoglobin (Bld) [Mass/Vol] 16.6 g/dL Critically high 12.0-16.0 [facility] Comment on above: Performed By: #### C BC #### [facility] [address] [place] [address] Dr. Cassie Porter IG # 0.03 10e3/ul Normal 0.00-0.03 [facility] Comment on above: Performed By: #### C BC #### [facility] [address] [place] [address] Dr. Cassie Porter IG % 0.4 % Normal 0.0-0.5 [facility] Comment on above: Performed By: #### C BC #### [facility] [address] [place] [address] Dr. Cassie Porter LYMPH # 2.8 103/ul Normal 1.2-3.8 [facility] Comment on above: Performed By: #### C BC #### [facility] [address] [place] [address] Dr. Cassie Porter Lymphocytes/100 WBC (Bld) 35.8 % Normal 20.5-60.0 [facility] Comment on above: Performed By: #### C BC #### [facility] [address] [place] [address] Dr. Cassie Porter MANUAL DIFF REQ NO Normal [facility] Comment on above: Performed By: #### C BC #### [facility] [address] [place] [address] Dr. Cassie Porter MCH (RBC) [Entitic mass] 31.8 pg Normal 26.7-34.0 [facility] Comment on above: Performed By: #### C BC #### [facility] [address] [place] [address] Dr. Cassie Porter MCHC (RBC) [Mass/Vol] 34.3 g/dL Normal 29.9-35.2 [facility] Comment on above: Performed By: #### C BC #### [facility] [address] [place] [address] Dr. Cassie Porter MCV (RBC) [Entitic vol] 92.7 fL Normal 81.0-99.0 [facility] Comment on above: Performed By: #### C BC #### [facility] [address] [place] [address] Dr. Cassie Porter MONO # 0.5 103/ul Normal 0.3-0.8 [facility] Comment on above: Performed By: #### C BC #### [facility] [address] [place] [address] Dr. Cassie Porter Monocytes/100 WBC (Bld) 6.5 % Normal 1.7-12.0 [facility] Comment on above: Performed By: #### C BC #### [facility] [address] [place] [address] Dr. Cassie Porter NEUT # 4.3 103/ul Normal 1.4-6.5 [facility] Comment on above: Performed By: #### C BC #### [facility] [address] [place] [address] Dr. Cassie Porter Neutrophils/100 WBC (Bld) 54.6 % Normal 43.0-75.0 [facility] Comment on above: Performed By: #### C BC #### [facility] [address] [place], [place] [address] Dr. Cassie Porter Platelet mean volume (Bld) [Entitic vol] 9.1 fL Critically low 9.5-13.5 [facility] Comment on above: Performed By: #### C BC #### [facility] [address] [place], [place] [address] Dr. Cassie Porter PLT 257 103/ul Normal 150-450 [facility] Comment on above: Performed By: #### C BC #### [facility] [address] [place], [place] [address] Dr. Cassie Porter RBC 5.22 106/ul Normal 4.20-5.40 [facility] Comment on above: Performed By: #### C BC #### [facility] [address] [place] [address] [address] Cassie Porter WBC 7.8 103/ul Normal 4.0-11.0 [facility] Comment on above: Performed By: #### C BC #### [facility] [address] [place] [address] [address] Cassie Porter MG MAMM SCREEN 3D ANSELMO CADon 09-26-2022 MG MAMM SCREEN 3D ANSELMO CAD Patient: KIMBERLI GERMAN Exam Date: 09/26/2022 : 1955 Gender:F Ordering : DR BOBBY CARRIZALES D.O. Admission #: [id number] Family : Order #: [id number] CLICK HERE TO VIEW EXAM RADIOLOGY REPORT [...] Treatments None Family Cancers None LOCATION: [facility] BREAST COMPOSITION: Scattered areas fibroglandular density. [...] Byrd MD on 09/26/2022 at 13:08 Normal [facility] PROF 14(COMP METB)on 022 Albumin [Mass/Vol] 3.8 g/dL Normal 3.4-5.0 [facility] Comment on above: Performed By: #### C MP #### [facility] [address] [place] [address] Dr. Cassie Porter Albumin/Globulin [Mass ratio] 0.9 {ratio} Normal [facility] Comment on above: Performed By: #### C MP #### [facility] [address] [place] [address] Dr. Cassie Porter ALP [Catalytic activity/Vol] 66 U/L Normal 46-116 [facility] Comment on above: Performed By: #### C MP #### [facility] [address] [place] [address] Dr. Cassie Porter ALT [Catalytic activity/Vol] 44 U/L Normal 14-59 [facility] Comment on above: Performed By: #### C MP #### [facility] [address] [place] [address] Dr. Cassie Porter Anion gap [Moles/Vol] 7.9 mmol/L Normal [facility] Comment on above: Performed By: #### C MP #### [facility] [address] [place] [address] Dr. Cassie Porter AST [Catalytic activity/Vol] 27 U/L Normal 15-37 [facility] Comment on above: Performed By: #### C MP #### [facility] [address] [place] [address] Dr. Cassie Porter Bilirubin [Mass/Vol] 0.7 mg/dL Normal 0.2-1.0 [facility] Comment on above: Performed By: #### C MP #### [facility] [address] [place] [address] [address] Cassie Porter Calcium [Mass/Vol] 9.8 mg/dL Normal 8.5-10.1 [facility] Comment on above: Performed By: #### C MP #### [facility] [address] [place] [address] [address] Cassie Porter Chloride [Moles/Vol] 102 mmol/L Normal 98-107 [facility] Comment on above: Performed By: #### C MP #### [facility] [address] [place] [address] [address] Cassie Porter CO2 [Moles/Vol] 33.6 mmol/L Critically high 21.0-32.0 [facility] Comment on above: Performed By: #### C MP #### [facility] [address] [place] [address] Dr. Cassie Porter Creatinine [Mass/Vol] 1.02 mg/dL Normal 0.55-1.02 [facility] Comment on above: Performed By: #### C MP #### [facility] [address] [place] [address] [address] Cassie Porter EGFR-AF SLOVAK >60 Normal >=60 [facility] Comment on above: Performed By: #### C MP #### [facility] [address] [place] [address] Dr. Cassie Porter EGFR-NON AF SLOVAK 54 mL/min/1.73m2 Critically low >=60 [facility] Comment on above: Performed By: #### C MP #### [facility] [address] [place] [address] [address] Cassie Porter Globulin (S) [Mass/Vol] 4.0 g/dL Normal [facility] Comment on above: Performed By: #### C MP #### [facility] [address] [place] [address] [address] Cassie Porter Glucose [Mass/Vol] 94 mg/dL Normal 74-106 [facility] Comment on above: Performed By: #### C MP #### [facility] [address] [place] [address] Dr. Cassie Porter Potassium [Moles/Vol] 3.5 mmol/L Normal 3.5-5.1 [facility] Comment on above: Performed By: #### C MP #### [facility] [address] [place] [address] [address] Cassie Porter Protein [Mass/Vol] 7.8 g/dL Normal 6.4-8.2 [facility] Comment on above: Performed By: #### C MP #### [facility] [address] [place] [address] [address] Cassie Porter Sodium [Moles/Vol] 140 mmol/L Normal 136-145 [facility] Comment on above: Performed By: #### C MP #### [facility] [address] [place] [address] [address] Cassie Porter Urea nitrogen [Mass/Vol] 13.0 mg/dL Normal 7.0-18.0 [facility] Comment on above: Performed By: #### C MP #### [facility] [address] [place] [address] [address] Cassie Porter Urea nitrogen/Creatinine [Mass ratio] 12.7 mg/mg Normal [facility] Comment on above: Performed By: #### C MP #### [facility] [address] [place] [address] [address] Cassie Porter Ambulatory Clinical Summaryo 06-17-2020 Ambulatory Clinical Summary {[id number]}CD:[id number] Normal [facility] Ambulatory Clinical Summary {[id number] Normal [facility] Patient Educationon 06-17-20 Patient Education Family [...] clear or pale yellow. ? Only take tvcg-dnj-nsyrgou or prescription medicines as directed by your [...] Document Reviewed: 06/18/2013 ExitCare? Patient Information ?2013 MiNOWireless. Normal [facility] RAD - MISCon 06-17-2020 [facility] [id number]:[id number] Normal [facility] Urology Office/Clinic Noteon 06-17-2020 Urology Office/Clinic Note Chief Complaint f/u with [facility]UB HPI Staff Pt here for f/u with KUB due to microscopic hematuria, Hx of kidney stones, flank pain and urge incontinence. Pt had [facility] done [facility]16 [facility] that is neg for obvious stones. Pt [...] and history for this pt. from Dr. Hazel. Follow-up With When Contact Information BRITTANIE BOSTON, Satinder Vance Only if needed [address] [place] [address]- [phone] Additional Instructions: Patient Education Flank Pain I, Char Vora , personally scribed for Dr. Hazel on 06/17/2020 10:22:05. . Documentation recorded by the scribe, Char Vora, accurately reflects the services(s) I performed and decisions made by me. Authenticated by Dr. Hazel on 06/17/2020 10:23:55. Problem List/Past Medical History [...] Protein Urine Dipstick: Negative (06/17/20 09:27:00) Specific [place] Urine Dipstick: 1.025 (06/17/20 09:27:00) Urine Appearance Urine Dipstick: Slightly cloudy (06/17/20 09:27:00) Urine Color Urine Dipstick: Dark yellow (06/17/20 09:27:00) Urobilinogen Urine Dipstick: Normal 0.2-1 EU/dl (06/17/20 09:27:00) pH Urine Dipstick: 5.5 (06/17/20 09:27:00) Normal [facility] Comment on above: Result Comment: Elec tronically Signed By: BRITTANIE BOSTON, Satinder Vance\.br\Date and Time Signed: 06/17/20 10:24 EDT\.br\Electronically Co-Signed By: Char Vora MA\.br\Date and Time Co-Signed: 06/17/20 10:22 EDT Vital Signs Date Time Vital Sign Value Performing Clinician Facility 09-17-2024 10:54-0400 Body height 154.94 cm [facility] 09-17-2024 10:54-0400 Body mass index (BMI) [Ratio] 34.5 kg/m2 [facility] 09-17-2024 10:54-0400 Body weight 83 kg [facility] 09-17-2024 10:54-0400 Diastolic blood pressure 90 mm[Hg] [facility] 09-17-2024 10:54-0400 Heart rate 67 /min [facility] 09-17-2024 10:54-0400 Respiratory rate 12 /min [facility] 09-17-2024 10:54-0400 Systolic blood pressure 169 mm[Hg] [facility] 03-10-2024 11:35-0400 Body height 154.94 cm [facility] 03-10-2024 11:35-0400 Body mass index (BMI) [Ratio] 34.5 kg/m2 [facility] 03-10-2024 11:35-0400 Body weight 83 kg [facility] 03-10-2024 11:35-0400 Diastolic blood pressure 80 mm[Hg] [facility] 03-10-2024 11:35-0400 Heart rate 67 /min [facility] 03-10-2024 11:35-0400 SaO2% (BldA) [Mass fraction] 98 % [facility] 03-10-2024 11:35-0400 Systolic blood pressure 150 mm[Hg] [facility] 11-07-2023 10:30-0500 Body height 154.94 cm Bobby Ball Other [facility] Other 11-07-2023 10:30-0500 Body mass index (BMI) [Ratio] 34.84 kg/m2 Bobby Ball Other [facility] Other 11-07-2023 10:30-0500 Body weight 83.64 kg Bobby Ball Other [facility] Other 11-07-2023 10:30-0500 Diastolic blood pressure 83 mm[Hg] Bobby Ball Other [facility] Other 11-07-2023 10:30-0500 Respiratory rate 12 /min Bobby Ball Other [facility] Other 11-07-2023 10:30-0500 Systolic blood pressure 133 mm[Hg] Bobby Ball Other [facility] Other 09-16-2023 10:30-0400 Body height 154.94 cm Bobby Ball Other [facility] Other 09-16-2023 10:30-0400 Body mass index (BMI) [Ratio] 34.84 kg/m2 Bobby Ball Other [facility] Other 09-16-2023 10:30-0400 Body weight 83.64 kg Bobby Carrizales Other [facility] Other 09-16-2023 10:30-0400 Respiratory rate 12 /min Bobby Carrizales Other [facility] Other Encounters Encounter Date Encounter Type Care Provider Facility Start: 09-17-2024 End: 09-17-2024 ambulatory [facility] Work Phone: Start: 09-17-2024 End: 09-17-2024 Patient encounter procedure [facility] Work Phone: Start: 09-16-2024 Non-patient / Non-visit [facility] Work Phone: Start: 09-15-2024 Patient encounter procedure [facility] Start: 05-20-2024 End: 05-20-2024 ambulatory [facility] Work Phone: Start: 05-20-2024 End: 05-20-2024 Patient encounter procedure [facility] Work Phone: Start: 03-10-2024 End: 03-10-2024 ambulatory [facility] Work Phone: Start: 03-10-2024 End: 03-10-2024 Patient encounter procedure [facility] Work Phone: Start: 03-10-2024 Non-patient / Non-visit [facility] Work Phone: Start: 11-07-2023 End: 11-07-2023 ambulatory Bobby Carrizales Other [facility] Other Start: 11-07-2023 Office outpatient vi sit 15 minutes Bobby Carrizales [facility] Start: 10-01-2023 End: 10-01-2023 ambulatory Bobby Carrizales Other [facility] Other Start: 10-01-2023 Telephone encounter Bobby Carrizales [facility] Start: 09-16-2023 End: 09-16-2023 ambulatory Bobby Carrizales Other [facility] [facility] Other Start: 09-16-2023 Patient encounter procedure Bobby Carrizales [facility] Start: 08-22-2023 End: 08-22-2023 ambulatory Bobby Carrizales Other [facility] [facility] Other Start: 08-22-2023 Nursing evaluation o f patient and report Bobby Carrizales [facility] Start: 10-01-2022 Encounter for genera l adult medical examination without abnormal findings DR BOBBY CARRIZALES [facility] Start: 09-26-2022 End: 09-27-[address] BOBBY CARRIZALES Facility:[facility] Start: 09-26-2022 End: 09-27-2022 Encounter for general adult medical examination without abnormal findings DR BOBBY CARRIZALES Facility:[facility] Plan of Treatment Date Care Activity Detail Author Comprehensive metabo lic 2000 panel - Serum or Plasma [facility] enter [facility] Immunizations Immunization Date Immunization Notes Care Provider Fa cility 03-09-2021 COVID-19 Vaccine Pfi zer - Documentation Purposes Only Bobby Carrizales Other [facility] 02-16-2021 COVID-19 Vaccine Pfi zer - Documentation Purposes Only Bobby Carrizales Other [facility] Payers Date Payer Category Payer Unknown [id number] 1955 Unknown [id number] Medicare [id number] Private Health Insurance [employer] SSI CLI [id number] Unknown [id number] Unknown [id number] Social History Date Type Detail Facility Unknown if ever smoked [facility] Other Sex Assigned At Sex Assigned At Bir th [facility] Other Start: 03-10-2024 Tobacco smoking status NHIS Never smoked tobacco (finding) [facility] Start: 1955 Sex Assigned At Female F [facility] Evaluation note 11-07-2023 Note Date [...] disease but symptoms don't warrant further investigation [facility] Other Evaluation note 09-16-2023 Note Date & [...] rhinitis due to pollen (ICD-10 - J30.1) [facility] Other Evaluation note 08-22-2023 Note Date & Type Note Facility 08-22-2023 Evaluation note Encounter Date Diagnosis Assessment Notes Aug, Non-seasonal allergic rhinitis due to pollen (ICD-10 - J30.1) [facility] Other Evaluation note Note Date & Type Note Facility Evaluation note No Information [employer] Other Evaluation note Note Date & Type Note Facility Evaluation note Diagnosis Onset Date Hypertension acute [facility] Work Phone: Evaluation note Note Date & Type Note Facility Evaluation note Diagnosis Onset Date Contusion of left foot acute SHAW (generalized anxiety disorder) acute Gastroesophageal reflux dise ase with esophagitis without hemorrhage acute Hypercholesteremia acute Hypertension acute Medicare annual wellness visit, subsequent acute Nicotine addiction acute Non-seasonal allergic rhinitis due to pollen acute Screening mammogram for breast cancer acute Simple chronic bronchitis [place] [facility] Work Phone: History general Narrative - Reported Note Date & Type Note Facility History general Narrative - Reported Type Medical History menopause Medical History hypertension Surgical History C section Hospitalization History see surgical history [facility] Other Summary Purpose Family History Relationship Condition Age at Onset Recorded Date/T dariel father Unknown Not Specified Unknown Relationship Condition Age at Onset Recorded Date/T dariel father Unknown mother Unknown Advance Directives Advance Directive Response Recorded Date/ Time Advance Directives No March 10 11:28am Chief Complaint and Reason for Visit Chief Complaint Amb Documentation BP elevated Reason for Visit Hypertension Chief Complaint Amb Documentation BP elevated allergy shot Reason for Visit Hypertension Chief Complaint CC Adult Risk Strati fication wellness Reason for Visit Contusion of left fo ot SHAW (generalized anxiety disorder) Gastroesophageal reflux disease with esophagitis without hemorrhage Hypercholesteremia Hypertension Medicare annual wellness visit, subsequent Nicotine addiction Non-seasonal allergic rhinitis due to pollen Screening mammogram for breast cancer Simple chronic bronchitis Additional Source Comments INFORMATION SOURCE (unrecogn ized section and content) DATE CREATED AUTHOR 06/18/2020 [facility] DATE CREATED AUTHOR AUTHOR'S ORGANIZ ATION 10/01/2022 [facility] REASON FOR VISIT (unrecogniz ed section and content) [facility] resu lts2 month Follow up Care Teams (unrecognized sec tion and content) Team Status: Active Member Role Status Dates Bobby Carrizales DO Primary Care Provider Active Team Status: Active Member Role Status Dates Bobby Carrizales DO Primary Care Provider Active Start: March 10, 2024 Melva Humphries LPN Attending Provider Active S tart: March 10, 2024 Team Status: Inactive Member Role Status Dates Bobby Carrizales DO Primary Care Provider Active Start: March 10, 2024 End: March 10, 2024 Lima Lopez APRN [employer] Attending Provider Act katharine Start: March 10, 2024 End: March 10, 2024 Team Status: Active Member Role Status Dates Bobby Carrizales DO Primary Care Provider Active Start: March 10, 2024 Melva Flores LPN Attending Provider Active St art: March 10, 2024 Team Status: Inactive Member Role Status Dates Bobby Carrizales DO Primary Care Provide r, Attending Provider Active Start: May 20, 2024 End: May 20, 2024 Team Status: Active Member Role Status Dates Bobby Carrizales DO Primary Care Provide r, Attending Provider Active Start: September 16, 2024 Team Status: Inactive Member Role Status Dates Bobby Carrizales DO Primary Care Provide r, Attending Provider Active Start: September 17, 2024 End: September 17, 2024 Goals (unrecognized section and content) Goals [...] BE BASED ON THE PRIMARY CLINICAL RECORDS. [facility] [employer] [facility]. provides no warranty or guarantee of the accuracy or completeness of information in this document.
[2024-10-19 10:39] LABS: Basophils Percent Auto 0.5 % (0.2-2.0); Eosinophils Absolute Auto 0.2 10^3/uL (0.0-0.7); Eosinophils Percent Auto 2.2 % (0.9-7.0); Hematocrit 49.1 % (36.0-48.0); Hemoglobin 16.5 g/dL (12.0-16.0); Immature Granulocytes Abs Auto 0.03 10^3/uL (0.00-0.03); Immature Granulocytes Pct Auto 0.4 % (0.0-0.5); Lymphocytes Absolute Auto 2.6 10^3/uL (1.2-3.8); Lymphocytes Percent Auto 33.6 % (20.5-60.0); Mean Corpuscular HGB Conc 33.6 g/dL (29.9-35.2); Mean Corpuscular Hemoglobin 31.7 pg (26.7-34.0); Mean Corpuscular Volume 94.4 fL (81.0-99.0); Mean Platelet Volume 8.9 fL (9.5-13.5); Monocytes Absolute Auto 0.4 10^3/uL (0.3-0.8); Monocytes Percent Auto 5.5 % (1.7-12.0); Neutrophils Absolute Auto 4.5 10^3/uL (1.4-6.5); Neutrophils Percent Auto 57.8 % (43.0-75.0); Platelet Count 235 10^3/uL (150-450); Red Cell Distribution Width 12.4 % (11.0-15.0); White Blood Count 7.9 10^3/uL (4.0-11.0)
[2024-10-19 11:38] LABS: Alanine Aminotransferase 19 U/L (14-59); Albumin Globulin Ratio 0.9; Albumin Level 3.3 g/dL (3.4-5.0); Alkaline Phosphatase 78 U/L (46-116); Anion Gap 11.8; Aspartate Amino Transferase 15 U/L (15-37); BUN Creatinine Ratio 10.6; Bilirubin Total 0.6 mg/dL (0.2-1.0); Calcium 9.7 mg/dL (8.5-10.1); Carbon Dioxide 29.8 mmol/L (21.0-32.0); Chloride 107 mmol/L (98-107); Chol HDL Ratio 4.1; Cholesterol 272 mg/dL (<=200); Estimated GFR (African America 58 (>=60 mL/min/1.73m^2); Estimated GFR (Non-African Ame 48 (>=60 mL/min/1.73m^2); Globulin 3.8 g/dL; Glucose 98 mg/dL (74-106); HDL Cholesterol 66 mg/dL (40-60); Potassium 3.6 mmol/L (3.5-5.1); Sodium 145 mmol/L (136-145); Total Protein 7.1 g/dL (6.4-8.2); Triglycerides 134 mg/dL (<=150); VLDL CHOLESTEROL 26.8 mg/dL
== END 2024-10-19 09:49 | disposition home or self-care (01) ==
LOC: MAMMO 09:52
PROVIDERS: PCP Internal Medicine; Visit Provider Internal Medicine
DX: Z12.31 Encounter for screening mammogram for malignant neoplasm of breast (principal); E78.00 Pure hypercholesterolemia, unspecified; I10 Essential (primary) hypertension
CPT/HCPCS: 36415; 77063; 77067; 80053; 80061; 85025

== ENCOUNTER 2025-11-01 10:15 | Outpatient (OUT) | payer MEDICARE, SELFPAY ==
[2025-11-01 10:39] LABS: Hematocrit 49.8 % (36.0-48.0); Hemoglobin 16.6 g/dL (12.0-16.0); Immature Granulocytes Abs Auto 0.03 10^3/uL (0.00-0.03); Immature Granulocytes Pct Auto 0.4 % (0.0-0.5); Lymphocytes Absolute Auto 2.5 10^3/uL (1.2-3.8); Mean Corpuscular HGB Conc 33.3 g/dL (29.9-35.2); Mean Corpuscular Hemoglobin 30.7 pg (26.7-34.0); Mean Corpuscular Volume 92.1 fL (81.0-99.0); Platelet Count 265 10^3/uL (150-450); Red Blood Count 5.41 10^6/uL (4.20-5.40); White Blood Count 8.1 10^3/uL (4.0-11.0)
[2025-11-01 11:21] LABS: Alanine Aminotransferase 24 U/L (14-59); Albumin Globulin Ratio 0.9; Albumin Level 3.7 g/dL (3.4-5.0); Alkaline Phosphatase 91 U/L (46-116); Anion Gap 9.5; Aspartate Amino Transferase 18 U/L (15-37); Blood Urea Nitrogen 9.0 mg/dL (7.0-18.0); Calcium 9.8 mg/dL (8.5-10.1); Carbon Dioxide 30.5 mmol/L (21.0-32.0); Chloride 106 mmol/L (98-107); Cholesterol 279 mg/dL (<=200); Estimated GFR (African America >60 (>=60 mL/min/1.73m^2); Estimated GFR (Non-African Ame 55 (>=60 mL/min/1.73m^2); Globulin 4.1 g/dL; Glucose 97 mg/dL (74-106); HDL Cholesterol 53 mg/dL (40-60); Potassium 4.0 mmol/L (3.5-5.1); Sodium 142 mmol/L (136-145); Total Protein 7.8 g/dL (6.4-8.2); Triglycerides 223 mg/dL (<=150); VLDL CHOLESTEROL 44.6 mg/dL
== END 2025-11-01 10:16 | disposition home or self-care (01) ==
LOC: LAB 10:19
PROVIDERS: PCP Internal Medicine; Visit Provider Internal Medicine
DX: E78.00 Pure hypercholesterolemia, unspecified (principal); I10 Essential (primary) hypertension
CPT/HCPCS: 36415; 80053; 80061; 85025